=== PATIENT | male | born 1960 | race Two or more races ===

== ENCOUNTER 2024-06-16 08:45 | Outpatient (AMB) | payer BC, SELFPAY ==
--- NOTE | 2024-06-16 08:56 | MHC.PC.OV ---
Vital Signs 06/16/24 09:02 Height 5 ft 4 in Weight 227 lb 4 oz BMI 39.0 BP 116/60 Blood Pressure Location Lt brachial Position Sitting Respiration 16 Pulse 80 Pulse Source Palpation Intake Visit Reasons: [facility] from [facility] Intake Note: new patient, diabetes Allergies No Known Allergies Allergy (Verified 06/16/24 08:57) Medication List - Last Reconciled 06/16/24 by Shy Donald MD albuterol sulfate 90 mcg/actuation inhalation blood sugar diagnostic (OneTouch Ultra Test strips) As directed losartan 25 mg PO DAILY metformin ER 1,000 mg PO BID pioglitazone 30 mg PO DAILY Tobacco use date assessed: 06/16/24 Dental Screening Dental Screen Date: 06/16/24 Did you have a dental visit in the last 12 months?: Yes Did you have a dental problem in the last 6 months where you did not have access to dental care?: No Was dental information given to patient?: Patient has dentist HPI HPI Comments History of Present Illness Details The patient has a year old male with a past medical history of type 2 diabetes, hypertension, [facility] Type 2 diabetes: He is currently on metformin 1000 mg twice daily and rybelsus 14mg. Does not like the latter. Previously on GLP injection-also did not tolerate SE. Was on glipizide in the past. POC A!C today is 5.8%. Cardiovascular: HTN. BP well controlled on losartan 25 mg daily He has been having bilateral shoulder and elbow pain and overall stiffness for the past 4 months. No fevers or rashes. Colonoscopy 10/2022 ROS see HPI PHYSICAL EXAM: GENERAL: Alert and oriented x 3. NAD EYES: EOMI. Anicteric. HENT: Moist mucous membranes. No scleral icterus. No cervical lymphadenopathy. LUNGS: Clear to auscultation bilaterally. CARDIOVASCULAR: Regular rate and rhythm. No murmur. No JVD. ABDOMEN: Soft, non-tender +bs EXTREMITIES: No edema. Non-tender. SKIN: No rashes or lesions. Warm. NEUROLOGIC: No focal neurological deficits. CN II-XII grossly intact PSYCHIATRIC: Cooperative. Appropriate mood and affect [facility] Medical History (Updated 06/16/24 @ 10:06 by Shy Donald MD) Hypertension Surgical History H/O knee surgery Family History Father Asthma Diabetes Mother High cholesterol Cancer Social History Housing: House Patient Tobacco Use Status: Current someday Tobacco user Tobacco use type: Cigar Years Smoked: 10 e-Cigarette/Vaping Use: Never Used Second Hand Smoke Exposure: No service: No Current occupational status: retired Current occupational exposures/hazards: No Cognitive needs: No Hearing needs: No Vision needs: No Questionnaire PHQ-9 Over the last 2 weeks, how often have you been bothered by any of the following problems? 1. Little interest or pleasure in doing things: not at all 2. Feeling down, depressed, or hopeless: not at all 3. Trouble falling or staying asleep, or sleeping too much: several days 4. Feeling tired or having little energy: not at all 5. Poor appetite or overeating: not at all 6. Feeling bad about yourself - or that you are a failure or have let yourself or your family down: not at all 7. Trouble concentrating on things, such as reading the newspaper or watching television: not at all 8. Moving or speaking so slowly that other people could have noticed. Or the opposite - being so fidgety or restless that you have been moving around a lot more than usual: not at all 9. Thoughts that you would be better off or of hurting yourself in some way: not at all Total score: 1 Depression Screening Interpretation: Negative (Neg) Depression Screening Done: Yes 04375 - PHQ-9 Billing: Yes Source: Developed by Drs. Bandar Burdick, Nelsy Dent, Kal Whelan and colleagues, with an educational luis from [employer]. Thrive Questionnaire Date Thrive assessed: 06/16/24 I am a: Patient What is your living situation today?: I have a steady place to live Within the past 12 months, did the food you bought not last and you didn't have the money to get more?: I choose not to answer this question Within the past 12 months, did you worry whether your food would run out before you got money to buy more?: I choose not to answer this question Do you have trouble paying for medicines?: No Do you have trouble getting transportation to medical appointments?: No Do you have trouble paying your heating and electricity bill?: No Do you have trouble taking care of your child, family member or friend?: No Do you have trouble with day-to-day activities such as bathing, preparing meals, shopping, managing finances, etc.?: No Are you currently unemployed and looking for a job?: No Are you interested in more education?: No Please select the resources that you would like help with: None Currently or been in a relationship where the following occur: No concerns reported THRIVE Score: 0 AUDIT C Alcohol Use Questionnaire (AUDIT-C) 1. How often do you have a drink containing alcohol?: Monthly or less 2. How many drinks containing alcohol do you have on a typical day when you are drinking?: 1 or 2 3. How often do you have six or more drinks on one occasion?: Never Total Score: 1 Score Reviewed/Action Taken: No FORD-7 AMB Questionnaire FORD-7 Date FORD - 7 assessed: 06/16/24 Feeling nervous, anxious, or on edge: 0 = Not at all Not being able to stop or control worryin = Not at all Worrying too much about different things: 0 = Not at all Trouble relaxin = Not at all Being so restless that it is hard to sit still: 0 = Not at all Becoming easily annoyed or irritable: 0 = Not at all Feeling afraid as if something awful might happen: 0 = Not at all Total FORD-7 score (0-4 normal; 5-9 mild; 10-14 moderate; 15-21 severe): 0 Source: Developed by Drs. Bandar Burdick, Nelsy Dent, Kal Whelan and colleagues, with an educational luis from [employer]. FORD-7 Assessment Billing FORD-7 Assessment Tool: FORD-7 Assessment 86409 Physical exam (Primary Care) Vital Signs: Last Vital Signs Pulse 80 06/16/24 09:02 Resp 16 06/16/24 09:02 BP 116/60 06/16/24 09:02 BMI result Body Mass Index 39.0 Tobacco/Smoking Status: Tobacco use Status Tobacco use date assessed 06/16/24 06/16/24 09:06 Patient Tobacco Use Status Current someday Tobacco 06/16/24 09:06 Tobacco use type Cigar 06/16/24 09:06 e-Cigarette/Vaping Use Never Used 06/16/24 09:06 PHQ-9: PHQ-9 Score PHQ-9: Total score 1 06/16/24 09:52 Depression Screening Interpretation: Negative (Neg) Thrive Assessment: Date of Thrive Assessment Date Thrive assessed 06/16/24 06/16/24 09:19 Currently or been in a relationship where the following occur: No concerns reported Results AMB Hemoglobin A1c AMB Hemoglobin A1c 5.8 % Last Edit by Natalie Mcdonald CMA on 06/16/24 09:54 Assessment and Plan Assessment & Plan (1) Diabetes: Code(s): E11.9 - Type 2 diabetes mellitus without complications Qualifiers: Diabetes mellitus type: type 2 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 use: without snf use Diabetes mellitus complication status: without complication Qualified Code(s): E11.9 - Type 2 diabetes mellitus without complications Plan: well controlled Can try stopping rybelsus and follow blood glucose closely Labs today Annual eye exams (2) Screening for deficiency anemia: Code(s): Z13.0 - Encounter for screening for diseases of the blood and blood-forming organs and certain disorders involving the immune mechanism (3) Polyarthralgia: Code(s): M25.50 - Pain in unspecified joint Plan: Lyme and ESR ordered Mobic sent Orders: Orders Lyme IgG/IgM w/reflex to WB Today E11.9 - Type 2 diabetes mellitus without complications, Z13.0 - Encounter for screening for diseases of the blood and blood-forming organs and certain disorders involving the immune mechanism Erythrocyte Sedimentation Rate Today E11.9 - Type 2 diabetes mellitus without complications, Z13.0 - Encounter for screening for diseases of the blood and blood-forming organs and certain disorders involving the immune mechanism Medications: New OneTouch Ultra Test (blood sugar diagnostic) As directed once daily 100 ea 3RF NS E11.9 - Type 2 diabetes mellitus without complications meloxicam 15 mg PO DAILY 90 tabs 3RF Coding Level of Care Code Est Pt Level 4 (27804) Complex EM visit Add On G2211 Diagnoses Type 2 diabetes mellitus without complication, without long-term current use of insulin E11.9 Diabetes mellitus type: type 2 Diabetes mellitus snf insulin use: without assistant store manager operations use Diabetes mellitus complication status: without complication Screening for deficiency anemia Z13.0 Polyarthralgia M25.50 Additional Codes FORD-7 Assessment Billing - FORD-7 Assessment Tool: FORD-7 Assessment 42321 ([id number])
[2024-06-16 09:02] VITALS: BP 116/60; PULSE 80; RESP 16; BMI 39.0
== END 2024-06-16 09:56 | disposition home or self-care (01) ==
PROVIDERS: PCP Internal Medicine; Visit Provider Internal Medicine
DX: E11.9 Type 2 diabetes mellitus without complications (principal); M25.50 Pain in unspecified joint; Z13.0 Encounter for screening for diseases of the blood and blood-forming organs and certain disorders involving the immune mechanism
CPT/HCPCS: 83036; 99214

== ENCOUNTER 2024-06-16 09:51 | Outpatient (REF) | payer BC, SELFPAY | END 2024-06-16 09:52 | disposition home or self-care (01) | LOC: HO.LAB 09:51 | PROVIDERS: Visit Provider Internal Medicine | DX: Z13.89 Encounter for screening for other disorder (principal) ==

== ENCOUNTER 2024-06-16 10:05 | Outpatient (REF) | payer BC, SELFPAY ==
[2024-06-16 11:31] LABS: MANUAL DIFF FLAG NO
[2024-06-16 11:33] LABS: Basophils Absolute Auto 0.1 X10*3/uL (0.0-0.2); Basophils Percent Auto 0.9 % (0-2); Eosinophils Absolute Auto 0.1 X10*3/uL (0.0-0.4); Eosinophils Percent Auto 1.8 % (0-4); Hemoglobin 14.6 g/dl (14.0-18.0); Imm Gran Abs Auto 0.03 X10*3/uL (0.00-0.03); Imm Gran Pct Auto 0.5 % (0.0-0.4); Lymphocytes Absolute Auto 1.4 X10*3/uL (1.2-4.9); Lymphocytes Percent Auto 25.1 % (20-40); Mean Corpuscular HGB Conc 33.2 g/dl (31.0-36.0); Mean Corpuscular Hemoglobin 29.9 pg (27.0-33.0); Mean Platelet Volume 8.8 fL (9.4-12.4); Monocytes Absolute Auto 0.5 X10*3/uL (0.1-1.2); Monocytes Percent Auto 9.4 % (2-11); Neutrophils Absolute Auto 3.5 x10*3/uL (2.0-8.3); Neutrophils Percent Auto 62.3 % (45-73); Platelet Count 338 X10*3/uL (160-400); Red Blood Count 4.89 X10*6/uL (4.60-5.80); Red Cell Distribution Width 13.3 % (11.0-16.0); White Blood Count 5.6 X10*3/uL (4.8-10.8)
[2024-06-16 11:41] LABS: Estimated Average Glucose 120 mg/dL; Hemoglobin A1c % 5.8 % (<6.0)
[2024-06-16 11:44] LABS: Erythrocyte Sedimentation Rate 6 MM/HR (0-15)
[2024-06-16 12:31] LABS: Alanine Aminotransferase 20 U/L (0-40); Albumin Level 4.3 g/dL (3.5-5.0); Alkaline Phosphatase 68 U/L (39-117); Anion Gap 11 (12-20); Aspartate Amino Transferase 18 U/L (5-37); Bilirubin Total 0.7 mg/dL (0.0-1.0); Blood Urea Nitrogen 16 mg/dL (9-16); Calcium 9.4 mg/dL (8.4-10.2); Carbon Dioxide 28 mmol/L (22-29); Chloride 105 mmol/L (96-108); Cholesterol 183 mg/dL (<200); Estimated Glomerular Filt Rate > 60; Glucose Random 124 mg/dL (60-115); HDL Cholesterol 51 mg/dL (>40); LDL Cholesterol Calculated 96 mg/dL (<100); Potassium 4.5 mmol/L (3.3-5.1); Sodium 139 mmol/L (135-145); Total Protein 7.3 g/dL (6.5-8.0); Triglycerides 184 mg/dL (<150)
[2024-06-16 12:41] LABS: Prostate Specific Antigen 0.53 ng/mL (<0.05-4.0)
[2024-06-16 15:01] LABS: Creatinine Urine 133.91 mg/dL
[2024-06-17 13:27] LABS: Lyme Abs Screen <0.90 index
== END 2024-06-16 10:06 | disposition home or self-care (01) ==
LOC: HO.WFDLDS 10:05
PROVIDERS: Visit Provider Internal Medicine
DX: E11.9 Type 2 diabetes mellitus without complications (principal); Z13.0 Encounter for screening for diseases of the blood and blood-forming organs and certain disorders involving the immune mechanism; Z12.5 Encounter for screening for malignant neoplasm of prostate
CPT/HCPCS: 36415; 80053; 80061; 82043; 82570; 83036; 84153; 85025; 85652; 86617; 86618

== ENCOUNTER 2024-09-16 15:38 | Outpatient (REF) | payer BC, SELFPAY ==
[2024-09-16 17:55] LABS: MANUAL DIFF FLAG NO
[2024-09-16 18:02] LABS: Basophils Absolute Auto 0.1 X10*3/uL (0.0-0.2); Basophils Percent Auto 0.8 % (0-2); Eosinophils Absolute Auto 0.1 X10*3/uL (0.0-0.4); Eosinophils Percent Auto 1.2 % (0-4); Hematocrit 45.8 % (42.0-52.0); Hemoglobin 15.4 g/dl (14.0-18.0); Imm Gran Abs Auto 0.01 X10*3/uL (0.00-0.03); Imm Gran Pct Auto 0.2 % (0.0-0.4); Lymphocytes Absolute Auto 1.6 X10*3/uL (1.2-4.9); Lymphocytes Percent Auto 24.7 % (20-40); Mean Corpuscular HGB Conc 33.6 g/dl (31.0-36.0); Mean Corpuscular Hemoglobin 29.8 pg (27.0-33.0); Mean Corpuscular Volume 88.8 fL (80.0-98.0); Mean Platelet Volume 8.8 fL (9.4-12.4); Monocytes Absolute Auto 0.6 X10*3/uL (0.1-1.2); Monocytes Percent Auto 8.9 % (2-11); Neutrophils Absolute Auto 4.2 x10*3/uL (2.0-8.3); Neutrophils Percent Auto 64.2 % (45-73); Platelet Count 323 X10*3/uL (160-400); Red Blood Count 5.16 X10*6/uL (4.60-5.80); Red Cell Distribution Width 12.2 % (11.0-16.0); White Blood Count 6.5 X10*3/uL (4.8-10.8)
[2024-09-16 18:07] LABS: Estimated Average Glucose 128 mg/dL; Hemoglobin A1C 171.4604 umol/L; Hemoglobin A1c % 6.1 % (<6.0); Total Hemoglobin (HGBA1C) 3971.5336 umol/L
[2024-09-16 18:13] LABS: Alanine Aminotransferase 26 U/L (0-40); Albumin Level 4.3 g/dL (3.5-5.0); Alkaline Phosphatase 75 U/L (39-117); Anion Gap 13 (12-20); Aspartate Amino Transferase 33 U/L (5-37); Bilirubin Total 0.5 mg/dL (0.0-1.0); Blood Urea Nitrogen 17 mg/dL (9-16); Calcium 9.6 mg/dL (8.4-10.2); Carbon Dioxide 27 mmol/L (22-29); Chloride 104 mmol/L (96-108); Cholesterol 210 mg/dL (<200); Estimated Glomerular Filt Rate > 60; Glucose Random 134 mg/dL (60-115); HDL Cholesterol 53 mg/dL (>40); LDL Cholesterol Calculated 121 mg/dL (<100); Potassium 4.6 mmol/L (3.3-5.1); Sodium 139 mmol/L (135-145); Total Protein 7.4 g/dL (6.5-8.0); Triglycerides 181 mg/dL (<150)
== END 2024-09-16 15:39 | disposition home or self-care (01) ==
LOC: HO.WFDLDS 15:38
PROVIDERS: Visit Provider Internal Medicine
DX: I10 Essential (primary) hypertension (principal); E11.9 Type 2 diabetes mellitus without complications; Z13.0 Encounter for screening for diseases of the blood and blood-forming organs and certain disorders involving the immune mechanism
CPT/HCPCS: 36415; 80053; 80061; 83036; 85025

== ENCOUNTER 2024-09-19 08:59 | Outpatient (AMB) | payer BC, SELFPAY ==
--- NOTE | 2024-09-19 09:05 | A.OFFPC_ITS ---
Vital Signs 09/19/24 09:10 Pulse 60 Pulse Source Pulse Oximeter Pulse Oximetry (%) 95 Oxygen Delivery Method Room Air Intake Visit Reasons: 3 month diabetes Intake Note: Diabetes follow up Allergies No Known Allergies Allergy (Verified 06/16/24 08:57) Tobacco use date assessed: 06/16/24 Dental Screening Dental Screen Date: 06/16/24 HPI HPI Comments History of Present Illness Details The patient has a year old male with a past medical history of type 2 diabetes, hypertension, presenting for follow up Type 2 diabetes: He is currently on metformin 1000 mg twice daily, pioglitazone, rybelsus 14mg. Previously on GLP injection-also did not tolerate SE. Was on glipizide in the past. A1C 6.1%. Cardiovascular: HTN. BP well controlled on losartan 25 mg daily continues to have some bilateral shoulder and elbow pain and overall stiffness for the past 7 months. Lyme and ESR unremarkable. no injury. Plan to trial off actos and rybelsus one at a time Colonoscopy 10/2022 ROS see HPI PHYSICAL EXAM: GENERAL: Alert and oriented x 3. NAD EYES: EOMI. Anicteric. HENT: Moist mucous membranes. No scleral icterus. No cervical lymphadenopathy. LUNGS: Clear to auscultation bilaterally. CARDIOVASCULAR: Regular rate and rhythm. No murmur. No JVD. ABDOMEN: Soft, non-tender +bs EXTREMITIES: No edema. Non-tender. SKIN: No rashes or lesions. Warm. NEUROLOGIC: No focal neurological deficits. CN II-XII grossly intact PSYCHIATRIC: Cooperative. Appropriate mood and affect [facility] Medical History Hypertension Surgical History H/O knee surgery Family History Father Asthma Diabetes Mother High cholesterol Cancer Social History Housing: House Patient Tobacco Use Status: Current someday Tobacco user Tobacco use type: Cigar Years Smoked: 10 e-Cigarette/Vaping Use: Never Used Second Hand Smoke Exposure: No service: No Current occupational status: retired Current occupational exposures/hazards: No Cognitive needs: No Hearing needs: No Vision needs: No Questionnaire Thrive Questionnaire Date Thrive assessed: 06/16/24 I am a: Patient What is your living situation today?: I have a steady place to live Within the past 12 months, did the food you bought not last and you didn't have the money to get more?: Never true Within the past 12 months, did you worry whether your food would run out before you got money to buy more?: Never true Do you have trouble paying for medicines?: No Do you have trouble getting transportation to medical appointments?: No Do you have trouble paying your heating and electricity bill?: No Do you have trouble with day-to-day activities such as bathing, preparing meals, shopping, managing finances, etc.?: No Please select the resources that you would like help with: None Currently or been in a relationship where the following occur: No concerns reported THRIVE Score: 0 AUDIT C Alcohol Use Questionnaire (AUDIT-C) 1. How often do you have a drink containing alcohol?: 4 or more times a week 2. How many drinks containing alcohol do you have on a typical day when you are drinking?: 1 or 2 3. How often do you have six or more drinks on one occasion?: Never Total Score: 4 FORD-7 AMB Questionnaire FORD-7 Date FORD - 7 assessed: 06/16/24 Feeling nervous, anxious, or on edge: 0 = Not at all Not being able to stop or control worryin = Not at all Worrying too much about different things: 2 = More than half the days Trouble relaxin = Several days Being so restless that it is hard to sit still: 2 = More than half the days Feeling afraid as if something awful might happen: 0 = Not at all Source: Developed by Drs. Bandar Burdick, Nelsy Dent, Kal Whelan and colleagues, with an educational luis from [employer]. Physical exam (Primary Care) Vital Signs: Last Vital Signs Pulse 60 09/19/24 09:10 Pulse Ox 95 09/19/24 09:10 Oxygen Delivery Method Room Air 09/19/24 09:10 Tobacco/Smoking Status: Tobacco use Status Tobacco use date assessed 06/16/24 09/19/24 09:05 Patient Tobacco Use Status Current someday Tobacco 09/19/24 09:05 Tobacco use type Cigar 09/19/24 09:05 e-Cigarette/Vaping Use Never Used 09/19/24 09:05 Thrive Assessment: Date of Thrive Assessment Date Thrive assessed 06/16/24 09/19/24 09:05 Currently or been in a relationship where the following occur: No concerns reported Coding Level of Care Code Est Pt Level 4 (91547) Diagnoses Primary hypertension I10 Hypertension type: primary hypertension Mixed hyperlipidemia E78.2 Hyperlipidemia type: mixed hyperlipidemia Type 2 diabetes mellitus without complication, without long-term current use of insulin E11.9 Diabetes mellitus complication status: without complication 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 control technician use Diabetes mellitus type: type 2 Assessment & Plan Assessment & Plan (1) Hypertension: Code(s): I10 - Essential (primary) hypertension Category: Medical Qualifiers: Hypertension type: primary hypertension Qualified Code(s): I10 - Essential (primary) hypertension Plan: well controlled on current medications (2) Hyperlipidemia: Code(s): E78.5 - Hyperlipidemia, unspecified Category: Medical Qualifiers: Hyperlipidemia type: mixed hyperlipidemia Qualified Code(s): E78.2 - Mixed hyperlipidemia Plan: stable (3) Diabetes: Code(s): E11.9 - Type 2 diabetes mellitus without complications Category: Medical Qualifiers: Diabetes mellitus complication status: without complication 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 control technician use Diabetes mellitus type: type 2 Qualified Code(s): E11.9 - Type 2 diabetes mellitus without complications Plan: well controlled on current medications Trial off actos and then if no improvement in muscle/joint pain will trial off rybelsus Orders: Orders Hemoglobin A1c Today E11.9 - Type 2 diabetes mellitus without complications, E78.5 - Hyperlipidemia, unspecified, I10 - Essential (primary) hypertension Lipid Panel 3 Months E11.9 - Type 2 diabetes mellitus without complications, E78.5 - Hyperlipidemia, unspecified, I10 - Essential (primary) hypertension Comprehensive Met. Panel Today E11.9 - Type 2 diabetes mellitus without complications, E78.5 - Hyperlipidemia, unspecified, I10 - Essential (primary) hypertension
[2024-09-19 09:10] VITALS: PULSE 60; O2SAT 95
== END 2024-09-19 09:49 | disposition home or self-care (01) ==
LOC: HO.HMCFM 09:00
PROVIDERS: PCP Internal Medicine; Visit Provider Internal Medicine
DX: I10 Essential (primary) hypertension (principal); E78.2 Mixed hyperlipidemia; E11.9 Type 2 diabetes mellitus without complications

== ENCOUNTER → 2024-09-19 08:59 | Outpatient (BNVA) | payer BC, SELFPAY | PROVIDERS: PCP Internal Medicine; Visit Provider Internal Medicine ==

== ENCOUNTER 2025-01-16 14:02 | Outpatient (REF) | payer BC, SELFPAY ==
--- OUTSIDE RECORDS SUMMARY | 2025-01-16 16:16 | XMS_ITS | Data Portability ---
Author Organization ELISHA Iraheta s, [address] Address [address] [place] [address] Assessment No assessment recorded. Plan of Treatment Reminders Order Date Submit Date Provider Last Modified By Organization Details Last Modified Time Details Appointments None recorded. Lab SARS CoV 2 (COVID-19) Ag, QL, IA, upper respiratory specimen 2023 024 [email or web address] [facility], [address] [place], [address], 4 15:23:24 Referral None recorded. Procedures None recorded. Surgeries None recorded. Imaging XR, chest, 2 view 2023 024 [email or web address] [email or web address], [address] [place] [address], [address], 4 15:35:45 Medication Orders doxycycline monohydrate 100 mg capsule 2023 024 [email or web address], [address] [place], [address], 4 15:23:20 albuterol sulfate HFA 90 mcg/actuati on aerosol inhaler 2023 024 Liquid [facility], [address] [place], [address], 4 15:23:20 Augmentin 875 mg-125 mg tablet 2023 024 Liquid [facility], [address] [place], [address], 4 15:23:20 benzonatate 100 mg capsule 2023 024 [email or web address] [facility], [address] [place], [address], 4 15:23:20 Patient TargetsNo targets recorded. Patient InstructionsNo instructions recorded. Reason for Referral None Reported. Results Created Date Observation Date Name Description Value Unit Range Abnormal Flag Note LastModifiedBy Organization Detail LastModifiedTime 04/19/20 24 04/19/2024 SARS CoV 2 (COVI D-19) Ag, QL, IA, upper respi rator y speci men Unknown Analyte negati ve Not Available ie [facility]st [address] [place] [address], [phone], 04/19/2024 14:44:56 04/19/20 24 04/19/2024 SARS CoV 2 (COVI D-19) Ag, QL, IA, upper respi rator y speci men Unknown Analyte Not Available fie ldemainst [address] [place] [address], [phone], 04/19/2024 14:44:56 04/19/20 24 04/19/2024 XR, chest , 2 view No observ ation record ed. [email or web address] [facility] [address] [place], [address], 04/19/2024 16:44:52 04/19/20 24 XR, chest , 2 view No observ ation record ed. [email or web address] [facility] [address] [place], [address], 04/19/2024 19:25:00 Result Notes None recorded. Problems Name Problem SNOMED Code Status Onset Date Resolution Date Notes Provider Name and Address Organization Details Recorded Time Diabetes mellitus 21439671 Active Linda Sharri null, PA - [facility] 4 14:55:05 Hypertensive disorder 75563921 Active Linda Sharri null, PA - [facility] 14:55:14 Problem Notes None recorded. Procedures Surgical History None recorded. Imaging Results Imaging Date Name Status LastModified by Organiz ation Details LastModified Time 04/19/2024 XR, chest, 2 view completed [email or web address] [facility] [address] [place], [address], 04/19/2024 16:44:52 04/19/2024 XR, chest, 2 view completed [facility] [address] [place], [address], 04/19/2024 19:25:00 Procedure Notes None recorded. Medical Equipment None Reported. Allergies No known drug allergies Medications Name Sig Start Date Stop Date Status Note LastModified by Organization Details LastModified Time Augmentin 875 mg-125 mg tablet Take 1 tablet every 12 hours by oral route with meal(s) for 5 days. 2023 active Not Available Not Available Not Avai lable benzonatate 100 mg capsule Take 1 capsule 3 times a day by oral route for 10 days. 2023 active Not Available Not Available Not Avai lable doxycycline monohydrate 100 mg capsule Take 1 capsule twice a day by oral route with meal(s) for 5 days. 2023 active Not Available Not Available Not Avai lable albuterol sulfate HFA 90 mcg/actuatio n aerosol inhaler Inhale 2 puffs every 4 hours by inhalation route. 2023 active Not Available Not Available Not Avai lable losartan active Not Available Not Avai lable Not Available metformin active Not Available Not Latonya ilable Not Available Rybelsus active Not Available Not Avai lable Not Available Vitals Date Recorded Body height Body mass index (BMI) Body weight Oxygen saturation Oxygen saturation in Arterial blood by Pulse oximetry Pain severity - 0-10 verbal numeric rating [Score] - Reported Respiratory rate Body temperature Heart rate Systolic blood pressure Diastolic blood pressure Provider Name and Address Organization Details Last Updated DateTime 163.83 cm 36.8 kg/m2 92053.1 4 g 98 % 98 % 9 16 /min 97.7 [degF] 121 /min 154 mm[Hg] 85 mm[Hg] Linda Sharri PA - [facility] 14:56:46 Date Recorded Heart rate Provider Name an d Address Organization Details Last Updated DateTime 04/19/2024 110 /min Gary Sánchez, DO [address] [place], [address], PA - [facility] 04/19/2024 15:13:30 Social History Question Answer Notes LastModified by Organizat ion Details LastModified Time Tobacco Smoking Status Never Smoker Linda Sharri null, PA - [facility] 04/19/2024 14:55:25 What Is Your Level Of Alcohol Consumption? None Information not available 04/19/2024 Have You Had Direct Contact, Or Contact During Intimacy, With Monkeypox Rash, Scabs, Or Body Fluids From A Person With Monkeypox? No Information not available 04/19/2024 What Was The Date Of Your Most Recent Tobacco Screening? 04/19/2024 Information not available 04/19/2024 Do You Use Any Illicit Or Recreational Drugs? No Information not available 04/19/2024 Have You Recently Traveled Abroad? No Information not available 04/19/2024 Do You Or Have You Ever Used Any Other Forms Of Tobacco Or Nicotine? No Information not available 04/19/2024 Sex: Unknown Functional Status None recorded. Mental Status None recorded. Family History Nothing Reported. Medical History No medical history recorded. Immunizations Vaccine Type Date Status Note Provider Nam e and Address Organization Details Recorded Time Influenza, MDCK, quadrivalent, PF 9 completed Linda Sharri null, PA - [facility] 04/19/2024 14:53:48 Influenza, MDCK, quadrivalent, PF 0 completed Linda Sharri null, PA - [facility] 04/19/2024 14:53:48 COVID-19, mRNA, LNP-S, PF, 100 mcg/0.5mL dose or 50 mcg/0.25mL dose 1 completed Linda Sharri null, PA - [facility] 04/19/2024 14:53:48 COVID-19, mRNA, LNP-S, PF, 100 mcg/0.5mL dose or 50 mcg/0.25mL dose 1 completed Linda Sharri null, PA - [facility] 04/19/2024 14:53:48 COVID-19, mRNA, LNP-S, PF, 30 mcg/0.3 mL dose 1 completed Linda Sharri null, PA - [facility] 04/19/2024 14:53:48 pneumococcal polysaccharide PPV23 3 completed Linda Sharri null, PA - [facility] 04/19/2024 14:53:48 Tdap 2 completed Linda Sharri null, PA - [facility] 04/19/2024 14:53:48 Tdap 1 completed Linda Sharri null, PA - [facility] 04/19/2024 14:53:49 Pneumococcal conjugate PCV 13 5 completed Linda Sharri null, PA - [facility] 04/19/2024 14:53:49 Influenza, split virus, trivalent, preservative 2 completed Linda Sharri null, PA - [facility] 04/19/2024 14:53:49 Influenza, split virus, trivalent, preservative 5 completed Linda Sharri null, PA - [facility] 04/19/2024 14:53:49 Influenza, split virus, trivalent, preservative 3 completed Linda Sharri null, PA - [facility] 04/19/2024 14:53:49 Influenza, split virus, trivalent, preservative 3 completed Linda Sharri null, PA - [facility] 04/19/2024 14:53:49 Influenza, split virus, trivalent, preservative 8 completed Linda Sharri null, PA - [facility] 04/19/2024 14:53:49 Influenza, split virus, trivalent, preservative 4 completed Linda Sharri null, PA - [facility] 04/19/2024 14:53:49 Influenza, split virus, trivalent, preservative 1 completed Linda Sharri null, PA - [facility] 04/19/2024 14:53:49 Td (adult), 2 Lf tetanus toxoid, preservative free, adsorbed 3 completed Linda Sharri null, PA - [facility] 04/19/2024 14:53:49 Past Encounters Encounter ID Performer Location Encounter Start Date Encounter Closed Date Diagnosis/Indication Diagnosis SNOMED-CT Code Diagnosis ICD10 Code Diagnosis Note [id number] Gary Sán[place] [address] [address] 04/19/2024 13:59:35 04/19/2024 15:35:42 Cough 53743892 R05.9 Given Hx and Sx will Rx Abx and albuterol MDITessalo n perles prn coughTrial of mucinex prn congestion Humidified airrest, fluidstyle nol/ibu prn Patient advised to follow up as needed for worsening symptoms or no improvemen t. Discussed concerning red flags with patient and reasons to follow up in the Emergency Department urgently. Community acquired pneumonia 974230021 J18.9 CXR suggestive of PNAwill treat as above XRay suggestive of PNAAwait radiology official read.If any discrepanc y we will contact the patient. Patient advised to follow up as needed for worsening symptoms or no improvemen t. Discussed concerning red flags with patient and reasons to follow up in the Emergency Department urgently. Patient expressed understand ing of and agreement with the plan as outlined above. Health Concerns Section Related Observation LastModified by Organization Detai ls LastModified Time None Recorded Concern Status LastModified by Organization Details LastModified Time None Recorded Advance Directives Directive None Recorded Payers Encounter Date Sequence Insurance Name Policy Number Policy Watkins Covered Member ID Watkins Member ID Guarantor Name 04/19/2024 1 [place]: [facility] (O) [id number] Colt Thompson [id number] Colt Thompson Notes Date Note Type Note Provider Name and Address Organization Details Recorded Time 04/19/2024 text/html CoughReported bypatient.Notes:63 yo male c/o cough x 1 weekNeg COVID test at home never smoker but does have the occasional cigarasthma - maybe as a kid but nothing recent+ h/o DM No fever but feels hot+ chills+ RAMOS+ body ache No nauseaNo vomitingNo coughNo wheezeNo difficulty breathing or respiratory distressNo CPNo congestionNo sinus painNo ear painNo sore throatNo Abdominal painNo diarrheaNo fatigueNo rashNo dizzinessNo recent travelNo known sick contacts Gary Sánchez, DO [address] [place], [address], PA - [facility] 04/19/2024 19:27:01
[2025-01-16 18:07] LABS: Alanine Aminotransferase 23 U/L (0-40); Albumin Level 4.3 g/dL (3.5-5.0); Alkaline Phosphatase 79 U/L (39-117); Anion Gap 12 (12-20); Aspartate Amino Transferase 25 U/L (5-37); Bilirubin Total 0.9 mg/dL (0.0-1.0); Blood Urea Nitrogen 11 mg/dL (9-16); Calcium 9.3 mg/dL (8.4-10.2); Carbon Dioxide 25 mmol/L (22-29); Chloride 104 mmol/L (96-108); Estimated Glomerular Filt Rate > 60; Glucose Random 124 mg/dL (60-115); Potassium 4.4 mmol/L (3.3-5.1); Sodium 137 mmol/L (135-145); Total Protein 7.8 g/dL (6.5-8.0)
[2025-01-16 18:09] LABS: Estimated Average Glucose 140 mg/dL; Hemoglobin A1C 189.7574 umol/L; Hemoglobin A1c % 6.5 % (<6.0); Total Hemoglobin (HGBA1C) 3964.3072 umol/L
== END 2025-01-16 14:03 | disposition home or self-care (01) ==
LOC: HO.WFDLDS 14:02
PROVIDERS: Visit Provider Internal Medicine
DX: E11.9 Type 2 diabetes mellitus without complications (principal); I10 Essential (primary) hypertension; E78.5 Hyperlipidemia, unspecified
CPT/HCPCS: 36415; 80053; 83036

== ENCOUNTER 2025-01-20 09:15 | Outpatient (AMB) | payer BC, SELFPAY ==
--- NOTE | 2025-01-20 09:25 | MHC.PC.OV ---
Vital Signs 01/20/25 09:31 Height 5 ft 4 in Weight 239 lb 2 oz BMI 41.0 BP 108/70 Blood Pressure Location Rt brachial Position Sitting Respiration 14 Pulse 87 Pulse Source Pulse Oximeter Pulse Oximetry (%) 96 Oxygen Delivery Method Room Air Intake Visit Reasons: f/up dm Intake Note: Follow up diabetes Traffic Signal Technician Required: No Allergies No Known Allergies Allergy (Verified 01/20/25 09:25) Medication List - Last Reconciled 01/26/25 by Shy Donald MD albuterol sulfate 90 mcg/actuation inhalation losartan 25 mg PO DAILY meloxicam 15 mg PO DAILY metformin ER 1,000 mg (2 x 500 mg) PO BID OneTouch Ultra Test (blood sugar diagnostic) As directed once daily NS pioglitazone 30 mg PO DAILY Rybelsus (semaglutide) 14 mg PO DAILY NS Tobacco use date assessed: 01/20/25 Dental Screening Dental Screen Date: 06/16/24 HPI HPI Comments History of Present Illness Details The patient has a year old male with a past medical history of type 2 diabetes, hypertension, presenting for follow up Type 2 diabetes: He is currently on metformin 1000 mg twice daily, pioglitazone, rybelsus 14mg. Previously on GLP injection- did not tolerate SE. Was on glipizide in the past. A1C 6.5% up from 6.1%. . Cardiovascular: HTN. BP well controlled on losartan 25 mg daily. Denies chest pain, shortness of breath MSK: bilateral shoulder and elbow pain-waxes and wanes. Lyme and ESR unremarkable. no injury. Had plan to trial off actos and rybelsus one at a time but ultimately he decided to continue both meds Colonoscopy 10/2022-10 years ROS see HPI PHYSICAL EXAM: GENERAL: Alert and oriented x 3. NAD EYES: EOMI. Anicteric. HENT: Moist mucous membranes. No scleral icterus. No cervical lymphadenopathy. LUNGS: Clear to auscultation bilaterally. CARDIOVASCULAR: Regular rate and rhythm. No murmur. No JVD. ABDOMEN: Soft, non-tender +bs EXTREMITIES: No edema. Non-tender. SKIN: No rashes or lesions. Warm. NEUROLOGIC: No focal neurological deficits. CN II-XII grossly intact PSYCHIATRIC: Cooperative. Appropriate mood and affect [facility] Medical History Hypertension Surgical History H/O knee surgery Family History Father Asthma Diabetes Mother High cholesterol Cancer Social History Housing: House Alcohol intake: current Patient Tobacco Use Status: Current someday Tobacco user Tobacco use type: Cigar Years Smoked: 10 e-Cigarette/Vaping Use: Never Used Second Hand Smoke Exposure: No Use of substances other than those prescribed or required for medical reasons: No service: No Current occupational status: retired Current occupational exposures/hazards: No Cognitive needs: No Hearing needs: No Vision needs: No Questionnaire Thrive Questionnaire Date Thrive assessed: 01/16/25 I am a: Patient What is your living situation today?: I have a steady place to live Within the past 12 months, did the food you bought not last and you didn't have the money to get more?: I choose not to answer this question Within the past 12 months, did you worry whether your food would run out before you got money to buy more?: Never true Do you have trouble paying for medicines?: No Do you have trouble getting transportation to medical appointments?: No Do you have trouble paying your heating and electricity bill?: No Do you have trouble taking care of your child, family member or friend?: No Do you have trouble with day-to-day activities such as bathing, preparing meals, shopping, managing finances, etc.?: No Are you currently unemployed and looking for a job?: No Are you interested in more education?: Yes Please select the resources that you would like help with: None Currently or been in a relationship where the following occur: No concerns reported THRIVE Score: 0 FORD-7 AMB Questionnaire FORD-7 Date FORD - 7 assessed: 06/16/24 Source: Developed by Drs. Bandar Burdick, Nelsy Dent, Kal Whelan and colleagues, with an educational luis from [employer]. Physical exam (Primary Care) Vital Signs: Last Vital Signs Pulse 87 01/20/25 09:31 Resp 14 01/20/25 09:31 BP 108/70 01/20/25 09:31 Pulse Ox 96 01/20/25 09:31 Oxygen Delivery Method Room Air 01/20/25 09:31 BMI result Body Mass Index 41.0 Tobacco/Smoking Status: Tobacco use Status Tobacco use date assessed 01/20/25 01/20/25 09:31 Patient Tobacco Use Status Current someday Tobacco 01/20/25 09:25 Tobacco use type Cigar 01/20/25 09:25 e-Cigarette/Vaping Use Never Used 01/20/25 09:25 Thrive Assessment: Date of Thrive Assessment Date Thrive assessed 01/16/25 01/20/25 09:25 Currently or been in a relationship where the following occur: No concerns reported Coding Level of Care Code Est Pt Level 4 (95644) Diagnoses Type 2 diabetes mellitus without complication, without long-term current use of insulin E11.9 Diabetes mellitus type: type 2 Diabetes mellitus terminal make up operator insulin use: without terminal make up operator use Diabetes mellitus complication status: without complication Primary hypertension I10 Hypertension type: primary hypertension Assessment & Plan Assessment & Plan (1) Diabetes: Code(s): E11.9 - Type 2 diabetes mellitus without complications Category: Medical Qualifiers: Diabetes mellitus type: type 2 Diabetes mellitus terminal make up operator insulin use: without penitentiary use Diabetes mellitus complication status: without complication Qualified Code(s): E11.9 - Type 2 diabetes mellitus without complications Plan: Controlled on current medication. Continue efforts weight loss Annual eye exams LDL goal <100 (2) Hypertension: Code(s): I10 - Essential (primary) hypertension Category: Medical Qualifiers: Hypertension type: primary hypertension Qualified Code(s): I10 - Essential (primary) hypertension Plan: controllled on current medications Low sodium diet Orders: Orders Lipid Panel 01/20/25 E11.9 - Type 2 diabetes mellitus without complications Comprehensive Met. Panel 01/20/25 E11.9 - Type 2 diabetes mellitus without complications Hemoglobin A1c 01/20/25 E11.9 - Type 2 diabetes mellitus without complications Microalbumin, Random (w Creat) 01/20/25 E11.9 - Type 2 diabetes mellitus without complications
[2025-01-20 09:31] VITALS: BP 108/70; PULSE 87; RESP 14; O2SAT 96; BMI 41.0
--- OUTSIDE RECORDS SUMMARY | 2025-01-20 10:11 | XMS_ITS | Data Portability ---
Author Organization ELISHA Iraheta s, [address] Address [address] [place] [address] Assessment No assessment recorded. Plan of Treatment Reminders Order Date Submit Date Provider Last Modified By Organization Details Last Modified Time Details Appointments None recorded. Lab SARS CoV 2 (COVID-19) Ag, QL, IA, upper respiratory specimen 2023 024 [email or web address] [facility], [address] [place], [address], 4 15:23:24 Referral None recorded. Procedures None recorded. Surgeries None recorded. Imaging XR, chest, 2 view 2023 024 [email or web address] [facility] [address] [place] [address], [address], 4 15:35:45 Medication Orders doxycycline monohydrate 100 mg capsule 2023 024 [email or web address], [address] [place], [address], 4 15:23:20 albuterol sulfate HFA 90 mcg/actuati on aerosol inhaler 2023 024 [facility], [address] [place], [address], 4 15:23:20 Augmentin 875 mg-125 mg tablet 2023 024 [facility], [address] [place], [address], 4 15:23:20 benzonatate 100 mg capsule 2023 024 [email or web address] [facility], [address] [place], [address], 4 15:23:20 Patient TargetsNo targets recorded. Patient InstructionsNo instructions recorded. Reason for Referral None Reported. Results Created Date Observation Date Name Description Value Unit Range Abnormal Flag Note LastModifiedBy Organization Detail LastModifiedTime 04/19/20 24 04/19/2024 SARS CoV 2 (COVI D-19) Ag, QL, IA, upper respi rator y speci men Unknown Analyte negati ve Not Available ie [email or web address] [address] [place] [address], [phone], 04/19/2024 14:44:56 04/19/20 24 04/19/2024 SARS CoV 2 (COVI D-19) Ag, QL, IA, upper respi rator y speci men Unknown Analyte Not Available fie [facility]st [address] [place] [address], [phone], 04/19/2024 14:44:56 04/19/20 24 04/19/2024 XR, chest , 2 view No observ ation record ed. [email or web address] [facility] [address] [place], [address], 04/19/2024 16:44:52 04/19/20 24 XR, chest , 2 view No observ ation record ed. [email or web address] [facility] [address] [place], [address], 04/19/2024 19:25:00 Result Notes None recorded. Problems Name Problem SNOMED Code Status Onset Date Resolution Date Notes Provider Name and Address Organization Details Recorded Time Diabetes mellitus 03167521 Active Linda Sharri null, PA - [facility] 4 14:55:05 Hypertensive disorder 95891175 Active Linda Sharri null, PA - [facility] 14:55:14 Problem Notes None recorded. Procedures Surgical History None recorded. Imaging Results Imaging Date Name Status LastModified by Organiz ation Details LastModified Time 04/19/2024 XR, chest, 2 view completed [email or web address] [facility] [address] [place], [address], 04/19/2024 16:44:52 04/19/2024 XR, chest, 2 view completed [email or web address] [facility] [address] [place], [address], 04/19/2024 19:25:00 Procedure Notes None recorded. Medical [...] Last Updated DateTime 163.83 cm 36.8 kg/m2 76865.1 4 g 98 % 98 % 9 16 /min 97.7 [degF] 121 /min 154 mm[Hg] 85 mm[Hg] Linda Sharri PA - [facility] 14:56:46 Date Recorded Heart rate Provider Name an d Address Organization Details Last Updated DateTime 04/19/2024 110 /min Gary Sánchez, DO [address] [place], [address], PA - [facility] 04/19/2024 15:13:30 Social [...] SNOMED-CT Code Diagnosis ICD10 Code Diagnosis Note [id number] Gary Sánchez [place] [address] [address] 04/19/2024 13:59:35 04/19/2024 15:35:42 Cough 44471407 R05.9 Given Hx and Sx will Rx Abx and albuterol MDITessalo n perles prn coughTrial of mucinex prn congestion Humidified airrest, fluidstyle nol/ibu prn Patient advised to follow up as needed for worsening symptoms or no improvemen t. Discussed concerning red flags with patient and reasons to follow up in the Emergency Department urgently. Community acquired pneumonia [id number] J18.9 CXR suggestive of PNAwill treat as [...] Member ID Guarantor Name 04/19/2024 1 [place]: [facility] (O) [id number] Colt Thompson [id number] Colt Thompson Notes Date Note Type [...] Sánchez, DO [address] [place], [address], PA - [facility] 04/19/2024 19:27:01
== END 2025-01-20 10:20 | disposition home or self-care (01) ==
PROVIDERS: PCP Internal Medicine; Visit Provider Internal Medicine
DX: E11.9 Type 2 diabetes mellitus without complications (principal); I10 Essential (primary) hypertension

== ENCOUNTER 2025-04-27 13:49 | Outpatient (REF) | payer BC, SELFPAY ==
--- OUTSIDE RECORDS SUMMARY | 2025-04-27 15:41 | XMS_ITS | Data Portability ---
Author Organization ELISHA Iraheta s, [address] Address [address] [place] [address] Assessment No assessment recorded. Plan of Treatment Reminders Order Date Submit Date Provider Last Modified By Organization Details Last Modified Time Details Appointments None recorded. Lab SARS CoV 2 (COVID-19) Ag, QL, IA, upper respiratory specimen 2023 024 [email or web address] [facility], [address] [place], [address], 4 15:23:24 Referral None recorded. Procedures None recorded. Surgeries None recorded. Imaging XR, chest, 2 view 2023 024 [email or web address], [address] [place] [address], [address], 4 15:35:45 Medication Orders doxycycline monohydrate 100 mg capsule 2023 024 [employer], [address] [place], [address], 4 15:23:20 albuterol sulfate HFA 90 mcg/actuati on aerosol inhaler 2023 024 [id number], [address] [place], [address], 4 15:23:20 Augmentin 875 mg-125 mg tablet 2023 024 [facility], [address] [place], [address], 4 15:23:20 benzonatate 100 mg capsule 2023 024 [email or web address] [facility], [address] [place], [address], 4 15:23:20 Patient TargetsNo targets recorded. Patient InstructionsNo instructions recorded. Reason for Referral None Reported. Results Created Date Observation Date Name Description Value Unit Range Abnormal Flag Note LastModifiedBy Organization Detail LastModifiedTime 04/19/20 24 04/19/2024 SARS CoV 2 (COVI D-19) Ag, QL, IA, upper respi rator y speci men Unknown Analyte negati ve Not Available ie [email or web address] [address] [place] [address], [phone], 04/19/2024 14:44:56 04/19/20 24 04/19/2024 SARS CoV 2 (COVI D-19) Ag, QL, IA, upper respi rator y speci men Unknown Analyte Not Available fie [facility] [address] [place] [address], [phone], 04/19/2024 14:44:56 04/19/20 24 04/19/2024 XR, chest , 2 view No observ ation record ed. [email or web address] [facility] [address] [place], [address], 04/19/2024 16:44:52 04/19/20 24 XR, chest , 2 view No observ ation record ed. [email or web address] [facility] [address] [place], [address], 04/19/2024 19:25:00 Result Notes None recorded. Problems Name Problem SNOMED Code Status Onset Date Resolution Date Notes Provider Name and Address Organization Details Recorded Time Diabetes mellitus 87933737 Active Linda Sharri null, [place] - [facility] 4 14:55:05 Hypertensive disorder 88642129 Active Linda Sharri null, PA - [facility] 14:55:14 Problem Notes None recorded. Medical Equipment None Reported. [...] Avai lable Not Available Vitals Date Recorded Heart rate Provider Name an d Address Organization Details Last Updated DateTime 04/19/2024 110 /min Gary Sánchez, DO [facility] [place], [address], [place] - [facility] 04/19/2024 15:13:30 Date Recorded Body height Body mass index (BMI) Body weight Oxygen saturation Oxygen saturation in Arterial blood by Pulse oximetry Respiratory rate Body temperature Heart rate Systolic blood pressure Diastolic blood pressure Provider Name and Address Organization Details Last Updated DateTime 4 163.83 cm 36.8 kg/m2 02825.1 4 g 98 % 98 % 16 /min 97.7 [degF] 121 /min 154 mm[Hg] 85 mm[Hg] Lindadarell De La Rosaella PA - [facility] 14:56:46 Social History Question Answer Notes LastModified by Organizat ion Details LastModified Time Tobacco Smoking Status Never Smoker Lindadarell ca, PA - [facility] 04/19/2024 14:55:25 Have You Had Direct Contact, Or Contact During Intimacy, With Monkeypox Rash, Scabs, Or Body Fluids From A Person With Monkeypox? No Information not available 04/19/2024 What Was The Date Of Your Most Recent Tobacco Screening? 04/19/2024 Information not available 04/19/2024 Have You Recently Traveled Abroad? No Information not available 04/19/2024 Sex: Unknown Functional Status Question Answer Note LastModified by Organizat ion Details LastModified Time Do you use any illicit or recreational drugs? No Information not available 04/19/2024 Do you or have you ever used any other forms of tobacco or nicotine? No Information not available 04/19/2024 What is your level of alcohol consumption? None Information not available 04/19/2024 Mental Status None recorded. Family History Nothing [...] [facility] 04/19/2024 14:53:48 Tdap 1 completed Lnida Sharri null, PA - [facility] 04/19/2024 [...] SNOMED-CT Code Diagnosis ICD10 Code Diagnosis Note [id number] Gary Sánchez [place] [address] [address] [place] [address] 04/19/2024 13:59:35 04/19/2024 15:35:42 Cough [id number] R05.9 Given Hx and Sx will Rx Abx and albuterol Carolin ramos prn coughTrial of mucinex prn congestion Humidified airrest, fluidstyle nol/ibu prn Patient advised to follow up as needed for worsening symptoms or no improvemen t. Discussed concerning red flags with patient and reasons to follow up in the Emergency Department urgently. Community acquired pneumonia [id number] J18.9 CXR suggestive of PNAwill treat as [...] Recorded Advance Directives Directive None Recorded Payers Insurance Date Sequence Insurance Name Policy Number Policy Watkins Covered Member ID Watkins Member ID Guarantor Name 04/19/2024 1 [facility] [id number] Colt Thompson [id number] Colt Thompson Notes Date Note Type [...] Sánchez, DO [address] [place], [address], [place] - [facility] 04/19/2024 19:27:01
[2025-04-27 18:05] LABS: Alanine Aminotransferase 21 U/L (0-40); Albumin Level 4.6 g/dL (3.5-5.0); Alkaline Phosphatase 83 U/L (39-117); Anion Gap 14 (12-20); Aspartate Amino Transferase 21 U/L (5-37); Bilirubin Total 0.7 mg/dL (0.0-1.0); Blood Urea Nitrogen 18 mg/dL (9-16); Calcium 9.3 mg/dL (8.4-10.2); Carbon Dioxide 26 mmol/L (22-29); Chloride 100 mmol/L (96-108); Cholesterol 193 mg/dL (<200); Estimated Glomerular Filt Rate > 60; Glucose Random 147 mg/dL (60-115); HDL Cholesterol 54 mg/dL (>40); LDL Cholesterol Calculated 113 mg/dL (<100); Potassium 4.6 mmol/L (3.3-5.1); Sodium 135 mmol/L (135-145); Total Protein 7.4 g/dL (6.5-8.0); Triglycerides 131 mg/dL (<150)
[2025-04-27 18:09] LABS: Creatinine Urine 97.95 mg/dL; Microalbum/Creatinine Ratio Ur 145.9 ug/mg cr (<30)
[2025-04-28 07:06] LABS: Estimated Average Glucose 143 mg/dL; Hemoglobin A1C 204.5408 umol/L; Hemoglobin A1c % 6.6 % (<6.0); Total Hemoglobin (HGBA1C) 4174.5224 umol/L
== END 2025-04-27 13:50 | disposition home or self-care (01) ==
LOC: HO.WFDLDS 13:49
PROVIDERS: Visit Provider Internal Medicine
DX: E78.5 Hyperlipidemia, unspecified (principal); E11.9 Type 2 diabetes mellitus without complications; I10 Essential (primary) hypertension
CPT/HCPCS: 36415; 80053; 80061; 82043; 82570; 83036

== ENCOUNTER 2025-04-28 10:05 | Outpatient (AMB) | payer BC, SELFPAY ==
--- NOTE | 2025-04-28 10:16 | MHC.PC.OV ---
Vital Signs 04/28/25 10:21 Height 5 ft 4 in Weight 232 lb 6 oz BMI 39.9 BP 118/72 Blood Pressure Location Rt brachial Position Sitting Pulse 83 Pulse Source Pulse Oximeter Temp 98.5 F Temp Source Temporal Artery Scan Pulse Oximetry (%) 95 Oxygen Delivery Method Room Air Intake Visit Reasons: DM Intake Note: Colt presents in the office today for his DM. Allergies No Known Allergies Allergy (Verified 04/28/25 10:19) Tobacco use date assessed: 04/28/25 Dental Screening Dental Screen Date: 04/28/25 Did you have a dental visit in the last 12 months?: Yes Did you have a dental problem in the last 6 months where you did not have access to dental care?: No Was dental information given to patient?: Patient has dentist HPI HPI Comments History of Present Illness Details The patient has a year old male with a past medical history of type 2 diabetes, hypertension, presenting for follow up Type 2 diabetes: He is currently on metformin 1000 mg twice daily, pioglitazone, rybelsus 14mg. Previously on GLP injection- did not tolerate SE. Was on glipizide in the past. A1C 6.6% from 6.5% up from 6.1%. Cardiovascular: HTN. BP well controlled on losartan 25 mg daily. Denies chest pain, shortness of breath MSK: bilateral shoulder and elbow pain-waxes and wanes. Lyme and ESR unremarkable. no injury. Now increased hip, knee pain. Continued shoulder pain. Alternates tylenol and ibuprofen. Seeing [facility] Issues with sleep ongoing. Failed trazodone in past. otc without effect Colonoscopy 10/2022-10 years ROS see HPI PHYSICAL EXAM: GENERAL: Alert and oriented x 3. NAD EYES: EOMI. Anicteric. HENT: Moist mucous membranes. No scleral icterus. No cervical lymphadenopathy. LUNGS: Clear to auscultation bilaterally. CARDIOVASCULAR: Regular rate and rhythm. No murmur. No JVD. ABDOMEN: Soft, non-tender +bs EXTREMITIES: No edema. Non-tender. SKIN: No rashes or lesions. Warm. NEUROLOGIC: No focal neurological deficits. CN II-XII grossly intact PSYCHIATRIC: Cooperative. Appropriate mood and [facility] History Hypertension Surgical History H/O knee surgery Family History Father Asthma Diabetes Mother High cholesterol Cancer Social History Housing: House Alcohol intake: current Patient Tobacco Use Status: Current someday Tobacco user Tobacco use type: Cigar Years Smoked: 10 e-Cigarette/Vaping Use: Never Used Second Hand Smoke Exposure: No service: No Current occupational status: retired Current occupational exposures/hazards: No Cognitive needs: No Hearing needs: No Vision needs: No Questionnaire PHQ-9 Over the last 2 weeks, how often have you been bothered by any of the following problems? 1. Little interest or pleasure in doing things: not at all 2. Feeling down, depressed, or hopeless: not at all 3. Trouble falling or staying asleep, or sleeping too much: nearly every day 4. Feeling tired or having little energy: not at all 5. Poor appetite or overeating: not at all 6. Feeling bad about yourself - or that you are a failure or have let yourself or your family down: not at all 7. Trouble concentrating on things, such as reading the newspaper or watching television: not at all 8. Moving or speaking so slowly that other people could have noticed. Or the opposite - being so fidgety or restless that you have been moving around a lot more than usual: not at all 9. Thoughts that you would be better off or of hurting yourself in some way: not at all Total score: 3 Depression Screening Interpretation: Negative Depression Screening Done: Yes 80594 - PHQ-9 Billing: Yes Source: Developed by Drs. Bandar Burdick, Nelsy Dent, Kal Whelan and colleagues, with an educational luis from [employer]. Thrive Questionnaire Date Thrive assessed: 01/16/25 I am a: Patient What is your living situation today?: I have a steady place to live Within the past 12 months, did the food you bought not last and you didn't have the money to get more?: I choose not to answer this question Within the past 12 months, did you worry whether your food would run out before you got money to buy more?: Never true Do you have trouble paying for medicines?: No Do you have trouble getting transportation to medical appointments?: No Do you have trouble paying your heating and electricity bill?: No Do you have trouble taking care of your child, family member or friend?: No Do you have trouble with day-to-day activities such as bathing, preparing meals, shopping, managing finances, etc.?: No Are you currently unemployed and looking for a job?: No Are you interested in more education?: Yes Please select the resources that you would like help with: None Currently or been in a relationship where the following occur: No concerns reported THRIVE Score: 0 FORD-7 AMB Questionnaire FORD-7 Date FORD - 7 assessed: 06/16/24 Source: Developed by Drs. Bandar Burdick, Nelsy Dent, Kal Whelan and colleagues, with an educational luis from [employer]. Physical exam (Primary Care) Vital Signs: Last Vital Signs Temp 98.5 F 04/28/25 10:21 Pulse 83 04/28/25 10:21 BP 118/72 04/28/25 10:21 Pulse Ox 95 04/28/25 10:21 Oxygen Delivery Method Room Air 04/28/25 10:21 BMI result Body Mass Index 39.9 Tobacco/Smoking Status: Tobacco use Status Tobacco use date assessed 04/28/25 04/28/25 10:26 Patient Tobacco Use Status Current someday Tobacco 04/28/25 10:20 Tobacco use type Cigar 04/28/25 10:20 e-Cigarette/Vaping Use Never Used 04/28/25 10:20 PHQ-9: PHQ-9 Score PHQ-9: Total score 3 04/28/25 10:37 Depression Screening Interpretation: Negative Thrive Assessment: Date of Thrive Assessment Date Thrive assessed 01/16/25 04/28/25 10:18 Currently or been in a relationship where the following occur: No concerns reported Coding Level of Care Code Est Pt Level 4 (04887) Diagnoses Chronic pain of left knee M25.562; G89.29 Chronicity: chronic Polyarthralgia M25.50 Primary hypertension I10 Hypertension type: primary hypertension Mixed hyperlipidemia E78.2 Hyperlipidemia type: mixed hyperlipidemia Type 2 diabetes mellitus without complication, without long-term current use of insulin E11.9 Diabetes mellitus type: type 2 Diabetes mellitus termite control service representative insulin use: without termite control service representative use Diabetes mellitus complication status: without complication Additional Codes PHQ-9 - 11771 - PHQ-9 Billing: Yes ([id number]) Assessment & Plan Assessment & Plan (1) Left knee pain: Code(s): M25.562 - Pain in left knee Category: Medical Qualifiers: Chronicity: chronic Qualified Code(s): M25.562 - Pain in left knee; G89.29 - Other chronic pain (2) Polyarthralgia: Code(s): M25.50 - Pain in unspecified joint Category: Medical (3) Hypertension: Code(s): I10 - Essential (primary) hypertension Category: Medical Qualifiers: Hypertension type: primary hypertension Qualified Code(s): I10 - Essential (primary) hypertension (4) Hyperlipidemia: Code(s): E78.5 - Hyperlipidemia, unspecified Category: Medical Qualifiers: Hyperlipidemia type: mixed hyperlipidemia Qualified Code(s): E78.2 - Mixed hyperlipidemia (5) Diabetes: Code(s): E11.9 - Type 2 diabetes mellitus without complications Category: Medical Qualifiers: Diabetes mellitus type: type 2 Diabetes mellitus termite control service representative insulin use: without group home use Diabetes mellitus complication status: without complication Qualified Code(s): E11.9 - Type 2 diabetes mellitus without complications Plan Polyarthralgia-recheck lyme. inflammatory markers DM is well controlled on current medications Insomnia-low dose ambien prn Preventive utd Orders: Orders Complete Blood Count Auto Diff 04/28/25 E11.9 - Type 2 diabetes mellitus without complications Comprehensive Met. Panel 04/28/25 E11.9 - Type 2 diabetes mellitus without complications Erythrocyte Sedimentation Rate 04/28/25 M25.50 - Pain in unspecified joint Rheumatoid Factor 04/28/25 M25.50 - Pain in unspecified joint Prostate Specific Antigen 04/28/25 E11.9 - Type 2 diabetes mellitus without complications Hemoglobin A1c 04/28/25 E11.9 - Type 2 diabetes mellitus without complications Lyme IgG/IgM w/reflex to WB 04/28/25 M25.50 - Pain in unspecified joint Medications: New tramadol 50 mg PO Q8H PRN 30 tabs 0RF pain zolpidem (Ambien) 5 mg PO BEDTIME PRN 30 tabs 2RF sleep Refilled metformin ER 1,000 mg (2 x 500 mg) PO BID 360 tabs 3RF metformin ER 1,000 mg (2 x 500 mg) PO BID 360 tabs 3RF
[2025-04-28 10:21] VITALS: BP 118/72; PULSE 83; TEMP 36.9; O2SAT 95; BMI 39.9
== END 2025-04-28 11:01 | disposition home or self-care (01) ==
LOC: HO.HMCFM 10:06
PROVIDERS: PCP Internal Medicine; Visit Provider Internal Medicine
DX: E11.69 Type 2 diabetes mellitus with other specified complication (principal); M25.562 Pain in left knee; G89.29 Other chronic pain; M25.50 Pain in unspecified joint; I10 Essential (primary) hypertension; E78.2 Mixed hyperlipidemia

== ENCOUNTER → 2025-04-28 10:05 | Outpatient (BNVA) | payer BC, SELFPAY | PROVIDERS: PCP Internal Medicine; Visit Provider Internal Medicine | DX: E11.9 Type 2 diabetes mellitus without complications (principal); I10 Essential (primary) hypertension; M25.562 Pain in left knee; G89.29 Other chronic pain; E78.2 Mixed hyperlipidemia; G47.00 Insomnia, unspecified; M25.511 Pain in right shoulder; M25.512 Pain in left shoulder; M25.521 Pain in right elbow; M25.522 Pain in left elbow; Z79.84 Long term (current) use of oral hypoglycemic drugs; Z79.899 Other long term (current) drug therapy; Z13.30 Encounter for screening examination for mental health and behavioral disorders, unspecified | CPT/HCPCS: 96127 ==

== ENCOUNTER 2025-04-28 11:46 | Outpatient (REF) | payer BC, SELFPAY ==
[2025-04-28 14:57] LABS: Erythrocyte Sedimentation Rate 7 MM/HR (0-15)
[2025-04-28 15:43] LABS: Rheumatoid Factor < 13.0 IU/mL (<15.0)
[2025-04-29 09:29] LABS: Lyme Abs Screen <0.90 index
== END 2025-04-28 11:47 | disposition home or self-care (01) ==
LOC: HO.WFDLDS 11:46
PROVIDERS: Visit Provider Internal Medicine
DX: M25.50 Pain in unspecified joint (principal); E11.9 Type 2 diabetes mellitus without complications
CPT/HCPCS: 36415; 85652; 86431; 86617; 86618

== ENCOUNTER 2025-08-24 11:19 | Outpatient (REF) | payer BC, SELFPAY ==
[2025-08-24 14:26] LABS: MANUAL DIFF FLAG NO
[2025-08-24 14:49] LABS: Hematocrit 42.1 % (42.0-52.0); Hemoglobin 14.7 g/dl (14.0-18.0); Imm Gran Abs Auto 0.07 X10*3/uL (0.00-0.03); Imm Gran Pct Auto 0.7 % (0.0-0.4); Lymphocytes Absolute Auto 2.4 X10*3/uL (1.2-4.9); Mean Corpuscular HGB Conc 34.9 g/dl (31.0-36.0); Mean Corpuscular Hemoglobin 30.1 pg (27.0-33.0); Mean Corpuscular Volume 86.1 fL (80.0-98.0); NRBC Abs Auto 0.000 X10*3/uL (0.0-0.012); NRBC Pct Auto 0.0 /100WBC (0.0-0.2); Platelet Count 354 X10*3/uL (160-400); Red Blood Count 4.89 X10*6/uL (4.60-5.80); White Blood Count 9.7 X10*3/uL (4.8-10.8)
[2025-08-24 15:04] LABS: Alanine Aminotransferase 20 U/L (0-40); Albumin Level 4.2 g/dL (3.5-5.0); Alkaline Phosphatase 81 U/L (39-117); Anion Gap 12 (12-20); Aspartate Amino Transferase 23 U/L (5-37); Blood Urea Nitrogen 18 mg/dL (9-16); Calcium 8.5 mg/dL (8.4-10.2); Carbon Dioxide 26 mmol/L (22-29); Chloride 101 mmol/L (96-108); Cholesterol 190 mg/dL (<200); Estimated Glomerular Filt Rate > 60; HDL Cholesterol 46 mg/dL (>40); Potassium 4.5 mmol/L (3.3-5.1); Sodium 134 mmol/L (135-145); Total Protein 6.8 g/dL (6.5-8.0); Triglycerides 161 mg/dL (<150)
[2025-08-24 15:20] LABS: Prostate Specific Antigen 0.63 ng/mL (<0.05-4.0)
== END 2025-08-24 11:20 | disposition home or self-care (01) ==
LOC: HO.WFDLDS 11:19
PROVIDERS: Visit Provider Internal Medicine
DX: E11.9 Type 2 diabetes mellitus without complications (principal); Z12.5 Encounter for screening for malignant neoplasm of prostate
CPT/HCPCS: 36415; 80053; 80061; 83036; 84153; 85025

== ENCOUNTER 2025-08-25 08:55 | Outpatient (AMB) | payer BC, SELFPAY ==
[2025-08-25 09:08] VITALS: BP 126/72; PULSE 84; RESP 14; O2SAT 98; BMI 40.3
--- NOTE | 2025-08-25 09:08 | MHC.PC.OV ---
Vital Signs 08/25/25 09:08 Height 5 ft 4 in Weight 235 lb BMI 40.3 BP 126/72 Blood Pressure Location Rt brachial Position Sitting Respiration 14 Pulse 84 Pulse Source Pulse Oximeter Pulse Oximetry (%) 98 Oxygen Delivery Method Room Air Intake Visit Reasons: DM Intake Note: Diabetes follow up. Lab results. Review Specialist Required: No Allergies No Known Allergies Allergy (Verified 08/25/25 09:10) Tobacco use date assessed: 08/25/25 Dental Screening Dental Screen Date: 04/28/25 HPI HPI Comments History of Present Illness Details The patient has a year old male with a past medical history of type 2 diabetes, hypertension, presenting for follow up Type 2 diabetes: He is currently on metformin 1000 mg twice daily, pioglitazone, rybelsus 14mg. Previously on GLP injection- did not tolerate SE. Was on glipizide in the past. A1C 6.6% from 6.6% from 6.5% up from 6.1%. Cardiovascular: HTN. BP well controlled on losartan 25 mg daily. Denies chest pain, shortness of breath MSK: bilateral shoulder and elbow pain-waxes and wanes. Lyme and ESR unremarkable. no injury. Now increased low back, left hip, knee pain. On meloxicam. Seeing [facility]. Recently had left knee injection. Dr Grace said may need knee replacement. Issues with sleep ongoing. ambien 5mg a little more effective than trazodone in past. otc without effect Colonoscopy 10/2022-10 years ROS see HPI PHYSICAL EXAM: GENERAL: Alert and oriented x 3. NAD EYES: EOMI. Anicteric. HENT: Moist mucous membranes. No scleral icterus. No cervical lymphadenopathy. LUNGS: Clear to auscultation bilaterally. CARDIOVASCULAR: Regular rate and rhythm. No murmur. No JVD. ABDOMEN: Soft, non-tender +bs EXTREMITIES: No edema. Non-tender. SKIN: No rashes or lesions. Warm. NEUROLOGIC: No focal neurological deficits. CN II-XII grossly intact PSYCHIATRIC: Cooperative. Appropriate mood and affect [facility] Medical History Hypertension Surgical History H/O knee surgery Family History Father Asthma Diabetes Mother High cholesterol Cancer Social History Housing: House Alcohol intake: current Patient Tobacco Use Status: Current someday Tobacco user Tobacco use type: Cigar Years Smoked: 10 e-Cigarette/Vaping Use: Never Used Second Hand Smoke Exposure: No service: No Current occupational status: retired Current occupational exposures/hazards: No Cognitive needs: No Hearing needs: No Vision needs: No Questionnaire Thrive Questionnaire Date Thrive assessed: 01/16/25 I am a: Patient What is your living situation today?: I have a steady place to live Within the past 12 months, did the food you bought not last and you didn't have the money to get more?: I choose not to answer this question Within the past 12 months, did you worry whether your food would run out before you got money to buy more?: Never true Do you have trouble paying for medicines?: No Do you have trouble getting transportation to medical appointments?: No Do you have trouble paying your heating and electricity bill?: No Do you have trouble taking care of your child, family member or friend?: No Do you have trouble with day-to-day activities such as bathing, preparing meals, shopping, managing finances, etc.?: No Are you currently unemployed and looking for a job?: No Are you interested in more education?: Yes Please select the resources that you would like help with: None Currently or been in a relationship where the following occur: No concerns reported THRIVE Score: 0 AUDIT C Alcohol Use Questionnaire (AUDIT-C) 1. How often do you have a drink containing alcohol?: 4 or more times a week 2. How many drinks containing alcohol do you have on a typical day when you are drinking?: 1 or 2 3. How often do you have six or more drinks on one occasion?: Never Total Score: 4 FORD-7 AMB Questionnaire FORD-7 Date FORD - 7 assessed: 06/16/24 Source: Developed by Drs. Bandar Burdick, Nelsy Dent, Kal Whelan and colleagues, with an educational luis from [employer]. Physical exam (Primary Care) Vital Signs: Last Vital Signs Pulse 84 08/25/25 09:08 Resp 14 08/25/25 09:08 BP 126/72 08/25/25 09:08 Pulse Ox 98 08/25/25 09:08 Oxygen Delivery Method Room Air 08/25/25 09:08 BMI result Body Mass Index 40.3 Tobacco/Smoking Status: Tobacco use Status Tobacco use date assessed 08/25/25 08/25/25 09:15 Patient Tobacco Use Status Current someday Tobacco 08/25/25 09:18 Tobacco use type Cigar 08/25/25 09:18 e-Cigarette/Vaping Use Never Used 08/25/25 09:18 Thrive Assessment: Date of Thrive Assessment Date Thrive assessed 01/16/25 08/25/25 09:15 Currently or been in a relationship where the following occur: No concerns reported Coding Level of Care Code Est Pt Level 4 (28074) Diagnoses Primary hypertension I10 Hypertension type: primary hypertension Mixed hyperlipidemia E78.2 Hyperlipidemia type: mixed hyperlipidemia Type 2 diabetes mellitus without complication, without long-term current use of insulin E11.9 Diabetes mellitus type: type 2 Diabetes mellitus long-term insulin use: without long-term use Diabetes mellitus complication status: without complication Polyarthralgia M25.50 Assessment & Plan Assessment & Plan (1) Hypertension: Code(s): I10 - Essential (primary) hypertension Category: Medical Qualifiers: Hypertension type: primary hypertension Qualified Code(s): I10 - Essential (primary) hypertension (2) Hyperlipidemia: Code(s): E78.5 - Hyperlipidemia, unspecified Category: Medical Qualifiers: Hyperlipidemia type: mixed hyperlipidemia Qualified Code(s): E78.2 - Mixed hyperlipidemia (3) Diabetes: Code(s): E11.9 - Type 2 diabetes mellitus without complications Category: Medical Qualifiers: Diabetes mellitus type: type 2 Diabetes mellitus intermediate card tender insulin use: without long-term use Diabetes mellitus complication status: without complication Qualified Code(s): E11.9 - Type 2 diabetes mellitus without complications (4) Polyarthralgia: Code(s): M25.50 - Pain in unspecified joint Category: Medical Plan Diabetes is well controlled on currnt medications. continue annual eye exams Left hip, low back pain-xrays [facility]. referral to physiatry HTN-controlled on current medication Insomnia-increase ambien to 10mg daily Orders: Orders XR lumbar spine 2-3V Today M25.552 - Pain in left hip, M54.50 - Low back pain, unspecified XR hip LT min 2V Today M25.552 - Pain in left hip, M54.50 - Low back pain, unspecified Referrals Physiatry Referral M25.552 - Pain in left hip, M54.50 - Low back pain, unspecified Medications: New zolpidem (Ambien) 10 mg PO BEDTIME PRN 30 tabs 3RF sleep
== END 2025-08-25 09:39 | disposition home or self-care (01) ==
LOC: HO.HMCFM 08:56
PROVIDERS: PCP Internal Medicine; Visit Provider Internal Medicine
DX: I10 Essential (primary) hypertension (principal); E78.2 Mixed hyperlipidemia; E11.9 Type 2 diabetes mellitus without complications; M25.50 Pain in unspecified joint

== ENCOUNTER 2025-10-21 11:00 | Outpatient (AMB) | payer BC, SELFPAY ==
--- NOTE | 2025-10-21 11:02 | MHC.OFFVIS ---
Vital Signs 10/21/25 11:03 Height 5 ft 4 in Weight 235 lb BMI 40.3 Intake Visit Reasons: Left hip & back pain Intake Note: Patient is a 64 year old male here left hip and back pain. [employer] Required: No Allergies No Known Allergies Allergy (Verified 10/21/25 11:04) HPI Comments Details: History of Present Illness The patient is a 64 year old individual presenting with complaints of hip and back pain. The patient has been experiencing this pain for approximately 2-3 years, localizing it to the side of the hip and gluteal area, which is assessed to be originating from the back. The pain is currently rated at a 6/10 severity but has reached levels of 8 or 9 out of 10 at times. The patient reports that playing golf tends to aggravate the symptoms. Relief is found with chiropractic adjustments, although the pain returns, and using a stationary bike also makes it feel better. The patient reports seeing a chiropractor once a month. The patient is not currently taking any medication for the pain. Previous x-rays of the low back revealed arthritis at L4-L5. The patient also has a history of a knee issue and a remote shoulder issue that was successfully treated with an injection about three years ago and has not been a problem since. Patient would like to consider further treatment options as he has been seeing a chiropractor regularly without relief of his symptoms. Pain Description - Onset: The pain has been ongoing for 2-3 years. - Location: The patient reports pain in the hip and back, specifically located on the side of the hip and in the gluteal area, not in the groin. - Radiation: The patient denies pain radiating down the thigh in a sciatic pattern. - Severity: Current pain is rated 3/10, with a history of it reaching 8 or 9 out of 10. - Exacerbating Factors: Playing golf worsens the pain. - Relieving Factors: Chiropractic adjustments and using a stationary bike provide relief. [facility] Medical History Hypertension Surgical History H/O knee surgery Family History Father Asthma Diabetes Mother High cholesterol Cancer Social History Housing: House Alcohol intake: current Patient Tobacco Use Status: Current someday Tobacco user Tobacco use type: Cigar Years Smoked: 10 e-Cigarette/Vaping Use: Never Used Second Hand Smoke Exposure: No service: No Current occupational status: retired Current occupational exposures/hazards: No Cognitive needs: No Hearing needs: No Vision needs: No Review of Systems Narrative Review of Systems - Musculoskeletal: Reports chronic pain in the low back and hip/gluteal region for 2-3 years. - Reports a history of a knee issue. - Denies pain with forward flexion of the back. - Neurological: Denies sciatica-like pain radiating into the thigh. - Psychiatric: Reports experiencing claustrophobia sometimes but feels it can be managed without medication for an MRI. Physical Exam Exam Exam: Physical Exam Lumbar Spine: Examination of his lumbar spine, there is no visible swelling or deformity. He is tender to lower lumbar facets on the left. Full range of motion of his lumbar spine. He does have an increase in pain with facet loading. Special Tests: Lhermittes sign was negative Heel Toe walk is normal Left straight leg raise: Negative Right straight leg raise: Negative Special tests Isai test is negative Ganslen's test is negative SI Joint compression test negative [place] test negative Piriformis stretch is negative Lower Extremities: Full range of motion bilateral lower extremities. No calf pain or edema. Neuro: Sensation: Intact to lower extremities bilaterally Strength L2 (Psoas): 5/5 on the left and 5/5 on the right. L3 (Quads): 5/5 on the left and 5/5 on the right. L4 (Ant tibialis): 5/5 on the left and 5/5 on the right. L5 (EHL) 5/5 on the left and 5/5 on the right. S1 (Gastroc): 5/5 on the left and 5/5 on the right. DTR L4: (Patellar) Left 1 Right 1 S1: (Achilles) Left 1 Right 1 Babinski Downgoing No pathologic clonus. No involuntary movement. Vital Signs: BMI result Body Mass Index 40.3 Results Reviewed Results Reviewed: X-ray left hip 08/25/2025 impression: Minimal degenerative changes. No evidence of acute osseous abnormality. X-ray lumbar spine 08/25/2025 impression: Significant degenerative changes at L4-5 with milder changes at L5-S1. The images were reviewed by me and I agree with the radiology report. Assessment & Plan Assessment & Plan (1) Lumbar radiculopathy: Code(s): M54.16 - Radiculopathy, lumbar region Category: Medical (2) Lumbar spondylosis: Code(s): M47.816 - Spondylosis without myelopathy or radiculopathy, lumbar region Category: Medical Plan Pain Management - Affect: The patient's mood was not discussed in relation to the pain. - Analgesia: The patient is currently not taking any pain medications, including Tylenol, on an as-needed basis. - Current Pain: The patient's pain level is currently a 3 out of 10. - Activities of Daily Living: The pain is exacerbated by golfing, while using a stationary bike is helpful. - Aberrant Behaviors: No aberrant drug-related behaviors were noted. Plan Patient was informed and verbally consented to the use of an ambient scribe for clinic note documentation during this visit. 1. Low Back Pain The patient presents with chronic low back pain, with a history of arthritis at L4-5 on x-ray. To further evaluate for disc pathology or nerve impingement not visible on x-ray, an MRI of the lumbar spine is being ordered. The procedure will be performed at the [facility]. Insurance authorization will be obtained for the study. The patient does not require pre-medication for claustrophobia. No pain medication will be prescribed at this time, as the patient feels it is not needed. A follow-up appointment will be scheduled after the MRI results are available to discuss the findings and further treatment plans. Discussion Notes I discussed with the patient that the pain described in the hip region is likely originating from the low back. I reviewed the prior x-ray findings, which show arthritis at L4-5. I explained that an MRI of the lumbar spine is necessary for a more detailed evaluation of the discs and nerves, which cannot be seen on an x-ray. I have ordered the MRI, which will be done at the [facility] after obtaining insurance authorization. We discussed the patient's history of claustrophobia, and the patient declined pre-medication for the scan. The patient declined any prescription for pain at this time. We will schedule a follow-up visit once the MRI report is available to discuss the results and decide on the best course of treatment. Patient Instructions - An MRI of your lower back has been ordered to get a better look at what is causing your pain. - Our office will contact your insurance company for approval of the MRI. - The MRI will be scheduled at the [facility]. - You do not need any medication for the MRI at this time. - We will schedule a follow-up appointment with you once we receive the MRI results to discuss them and plan your treatment. - You do not need any new pain medicine for now. Orders: Orders MR lumbar spine wo con Today M51.16 - Intervertebral disc disorders with radiculopathy, lumbar region Coding Level of Care Code Est Pt Level 4 (17776) Diagnoses Lumbar radiculopathy M54.16 Lumbar spondylosis M47.816
[2025-10-21 11:03] VITALS: BMI 40.3
== END 2025-10-21 11:19 | disposition home or self-care (01) ==
LOC: HO.HPHYS 11:00
PROVIDERS: PCP Internal Medicine; Visit Provider Physician Assistant
DX: M54.16 Radiculopathy, lumbar region (principal); M47.816 Spondylosis without myelopathy or radiculopathy, lumbar region
CPT/HCPCS: 99214